=== PATIENT | female | born 1945 | race Caucasian/White ===

== ENCOUNTER 2018-07-07 05:23 | Inpatient (IN) | payer OTHER, MEDICARE ==
[2018-06-25 13:01] LABS: HEMOGLOBIN 13.1 gm/dL (12.0-15.0); MCH 28.4 pg (26.0-34.0); MCHC 33.5 g/dL (28.0-37.0); MCV 84.7 fL (80.0-100.0); RBC 4.6 mil/uL (4.20-5.00); WBC 3.7 thou/uL (4.0-11.0)
[2018-06-25 13:02] LABS: URINE BILIRUBIN NEGATIVE (Negative); URINE BLOOD NEGATIVE (Negative); URINE CLARITY CLEAR; URINE COLOR YELLOW; URINE GLUCOSE-RANDOM* NEGATIVE (Negative); URINE KETONES NEGATIVE (Negative); URINE LEUKOCYTES-REFLEX NEGATIVE (Negative); URINE NITRITE-REFLEX NEGATIVE (Negative); URINE PROTEIN (DIPSTICK) NEGATIVE (Negative); URINE UROBILINOGEN 0.2 E.U./dl (0.2-1.0)
[2018-06-25 13:11] LABS: PROTIME 9.8 Seconds (9.3-11.4)
[2018-06-25 13:19] LABS: CALCIUM 9.6 mg/dL (8.5-10.1); CREATININE 0.9 mg/dL (0.6-1.0); POTASSIUM 4.7 mmol/L (3.5-5.1)
[~2018-07-07] VITALS: Ht 165.1 cm; Wt 57.2 kg
[2018-07-07] VITALS (9 sets, daily range): BP systolic 98–138; BP diastolic 48–71
--- NOTE | ~2018-07-07 | O ---
[facility] [place] [address] OPERATIVE REPORT Name: LAURE FRANCES Room #: 463-P [facility] IN M.R.#: [id number] Admission: 07/07/18 Attend Phys: Kdoak Simpson MD Discharge: 07/08/18 Date of : 43 Report #: [id number] THIS REPORT FOR: //name// CC: Harris Simpson DATE OF SERVICE: 07/07/2018 PREOPERATIVE DIAGNOSIS: Bilateral knee osteoarthritis. POSTOPERATIVE DIAGNOSIS: Bilateral knee osteoarthritis. PROCEDURE: Bilateral total knee arthroplasty with using Navio robotic treasury assistant. SURGEON: Kodak Simpson MD. PERMANENT MOLD SUPERVISOR: Demi Floyd PA-C. INDICATIONS FOR PERMANENT MOLD SUPERVISOR: Throughout the case, extensive retraction and manipulation of the knees were required. This was afforded to me by my treasury assistant. ANESTHESIA: LMA with adductor canal blocks bilaterally. IMPLANTS FOR THE LEFT KNEE: Garcia [employer] Nephew size 6 narrow Oxinium Legion posterior stabilized femur, a size 4 tibia, size 9 polyethylene and a size 35 patella. IMPLANTS FOR THE RIGHT KNEE: Garcia [employer]hew size 6 narrow Legion Oxinium posterior stabilized femur, a size 4 tibia, size 9 polyethylene and a size 32 patella. TOURNIQUET TIME: 68 minutes for the left knee and 81 minutes for the right knee. ESTIMATED BLOOD LOSS: 50 mL. COMPLICATIONS: None. SPECIMENS: None. CONDITION UPON LEAVING THE OPERATING ROOM: Stable. INDICATION FOR PROCEDURE: The patient is a 72-year-old female with bilateral knee osteoarthritis. She had failed conservative treatment for this and after [facility] [address] [address] OPERATIVE REPORT Name: LAURE FRANCES Room #: 463-P DIS IN M.R.#: [id number] Admission: 07/07/18 Attend Phys: Kodak Simpson MD Discharge: 07/08/18 Date of : 43 Report #: [id number] discussion with her, she elected for bilateral total knee arthroplasty. DESCRIPTION OF PROCEDURE: Risks, benefits, alternatives, complications were discussed in detail with the patient including but not limited to risk of anesthesia, risk of damage to nerves, arteries, blood vessels, risk for infection, bleeding, risk for continued knee pain and need for reoperation. Informed consent was obtained from the patient. Bilateral knees were appropriately marked in the preoperative holding area. IV Ancef was given for preoperative antibiotics. Adductor canal blocks were placed by Anesthesia. She was brought to the operating room and placed in the supine position on the operating room table. LMA anesthesia was induced without complication. Following indication applies to bilateral knees except were noted in the report. Tourniquet was placed on the thigh. The bilateral lower extremities were then prepped and draped in normal sterile fashion. Timeout was performed properly identifying the patient and procedure as well as the instrumentation and implants. All in the operating room were in agreement. Extremity was exsanguinated, tourniquet was inflated. Tourniquet time was again 68 minutes on the left and 81 minutes on the right. A standard midline approach to the knee was made with 10 blade through the skin. Dissection was taken down sharply to the fascia and deep flaps were developed medially and laterally. Fresh 10 blade was used to make a medial parapatellar arthrotomy and the knee was inspected. There was severe medial compartment and patellofemoral compartment osteoarthritic change. Anterior horns of the meniscus were removed sharply. ACL and PCL were removed sharply. Reference pins were then placed in the femur and the tibia for use with the NavTencent navigation robotic system. The knee was then digitally mapped using the standard Navio technique and intraoperative plan was made. The femur was a size 6 narrow. The tibia was a size 4. After acceptance of the plan, the distal femoral cut was made with Navio tiny and the size 6, 4-in-1 cutting block was placed on the end of the femur and anterior, posterior, and chamfer cuts were made. The remainder of the menisci removed with Bovie cautery and the tibial resection guide was then pinned in place using the Navio navigation treasury assistant. Tibial resection was made. Flexion and extension gaps were checked and the right knee found to be tight medially, so a limited medial release was performed using the pie crust technique. This balanced the knee well. The left knee did not require a ligament release. Tibia was sized, found to be a size 4. The size 4 tibial trial was placed and punched. A size 6 femoral trial was placed and the box cut was made. This was then trialed with a size 9 polyethylene. Knee was taken through range of motion, found to be stable, found to have good balance in flexion, extension, both manually as well as digitally using the Navio robotic assistance. After this, 9 mm was taken off the posterior surface of the patella and a size 35 patellar trial was placed on the left knee. A size 32 trial was used for the right. Knee was taken through range of motion, found to be stable, found to have good balance in flexion and extension both medially and laterally. Trial components were removed. Bony ends were thoroughly irrigated with normal [address] [address] OPERATIVE REPORT Name: LAURE FRANCES Room #: 463-P DIS IN M.R.#: [id number] Admission: 07/07/18 Attend Phys: Kodak Simpson MD Discharge: 07/08/18 Date of : 43 Report #: [id number]. Final size 4 tibia, size 6 narrow Oxinium Legion posterior stabilized femur and the patellar components were cemented in place using standard cementation techniques. While the cement cured, a periarticular injection consisting of morphine, ropivacaine, epinephrine and Toradol was placed around the knee joint capsule. After the cement cured, the tourniquet was deflated. Hemostasis was obtained with Bovie cautery. Final size 9 polyethylene was placed. A gram of vancomycin was placed deep in the joint. The fascia was closed with 0 Vicryl, skin was closed with 2-0 Vicryl, 3-0 Monocryl. Dermabond and a ALONZO dressing was applied. The patient tolerated this procedure well and went to the recovery room under the care of anesthesia postoperatively. <ELECTRONICALLY SIGNED> By: Kodak Simpson MD 07/09/18 [id number] Kodak Simpson MD /nt
[~2018-07-07 05:23] MED LIST: ALLER-TEC PO; ALLERCLEAR10 MG PO; ALPHA CRS PO; ARMOUR THYROID15 M1 PO; ARMOUR THYROID90 M1 PO; ASPIR 8181 MG PO; B COMPLEX1 EACH PO; CELEXA20 MG PO; CENTRUM SILVER1 EAC4 PO; CO Q-10100 MG PO; COLLAGEN PO; CRESTOR5 MG PO; GLUCOSAMINE CH1 EAC7 PO; L-CARNITINE500 M1 PO; LUNESTA2 MG PO; MSM500 MG PO; PROBIOTIC1 EAC1 PO; RESVERATROL100 MG PO; RUTIN500 MG PO; SELENIUM100 MCG PO; SIMVASTATIN20 MG PO; SPIRONOLACTONE100 M4; TURMERIC500 M2 PO; ULTIMATE OMEGA PO; VITAMIN B-12500 MCG PO; VITAMIN D-32000 UNIT PO; VITAMIN K100 MCG PO; VITAMINC500 PO; [UNRECOGNIZED DRUG - OTHER] PO; [UNRECOGNIZED DRUG - OTHER] PO; [UNRECOGNIZED DRUG - OTHER] PO; [UNRECOGNIZED DRUG - OTHER] PO; [UNRECOGNIZED DRUG - OTHER] PO
[2018-07-08] VITALS: BP 95/46
[2018-07-08 05:00] VITALS: BP 95/50
[2018-07-08 05:48] LABS: HEMATOCRIT 30.9 % (37.0-47.0); HEMOGLOBIN 10.8 gm/dL (12.0-15.0); MCH 29.7 pg (26.0-34.0); MCV 84.8 fL (80.0-100.0); RBC 3.64 mil/uL (4.20-5.00); RDW 12.9 % (10.5-14.5); WBC 7.3 thou/uL (4.0-11.0)
[2018-07-08 08:59] VITALS: BP 98/58
[2018-07-08] MEDS ORDERED: TRI-BUFFERED A325 M1 PO (11:23)
[2018-07-08] MEDS ORDERED: NEURONTIN 300300 M1 PO (11:23)
[2018-07-08 16:24] VITALS: BP 92/47
[2018-07-08 16:28] VITALS: BP 92/47
== END 2018-07-08 17:30 | disposition home or self-care (01) | DRG 462 ==
LOC: TBA 05:23 → 4W 05:23 → PRE 05:36 → 4W 18:39
PROVIDERS: Orthopaedic Surgery
PROC: 0SRC069 Replacement of Right Knee Joint with Oxidized Zirconium on Polyethylene Synthetic Substitute, Cemented, Open Approach (ICD-10-PCS; principal; 2018-07-07)
PROC: 0SRD069 Replacement of Left Knee Joint with Oxidized Zirconium on Polyethylene Synthetic Substitute, Cemented, Open Approach (ICD-10-PCS; principal; 2018-07-07)
PROC: 8E0YXCZ Robotic Assisted Procedure of Lower Extremity (ICD-10-PCS; principal; 2018-07-07)
DX: M17.0 Bilateral primary osteoarthritis of knee (principal); E78.5 Hyperlipidemia, unspecified; F32.9 Major depressive disorder, single episode, unspecified; Z91.048 Other nonmedicinal substance allergy status; Z79.899 Other long term (current) drug therapy
CPT/HCPCS: 10047; 50010; 50101; 50415; 50915; 50954; 51130; 51225; 51320; 51771; 52001; 53000; 53078; 53365; 54118; 56527; 56528; 56805; 57095; 57103; 57109; 57110; 57113; 57127; 57180; 62110; 62900; 70005

== ENCOUNTER → 2019-05-14 | Outpatient (CLI) | payer OTHER, MEDICARE ==
[~2019-05-14] VITALS: Ht 165.1 cm; Wt 59.9 kg
[~2019-05-14] MED LIST changes: +ACYCLOVIR 200200 MG PO; +NEURONTIN 300300 M1 PO; +TRI-BUFFERED A325 M1 PO
== END | disposition home or self-care (01) ==
LOC: GI 08:02
DX: Z12.11 Encounter for screening for malignant neoplasm of colon (principal); Z86.010 Personal history of colon polyps; K63.89 Other specified diseases of intestine; E03.9 Hypothyroidism, unspecified; E78.5 Hyperlipidemia, unspecified; F41.9 Anxiety disorder, unspecified; F32.9 Major depressive disorder, single episode, unspecified; Z85.3 Personal history of malignant neoplasm of breast; Z90.49 Acquired absence of other specified parts of digestive tract; Z79.82 Long term (current) use of aspirin; Z98.41 Cataract extraction status, right eye; Z96.653 Presence of artificial knee joint, bilateral; Z98.42 Cataract extraction status, left eye; Z79.899 Other long term (current) drug therapy; Z98.890 Other specified postprocedural states
CPT/HCPCS: 62110; 62900

== ENCOUNTER → 2021-04-06 | Outpatient (CLI) | payer OTHER, MEDICARE ==
[~2021-04-06] VITALS: Ht 165.1 cm; Wt 61.2 kg
[~2021-04-06] MED LIST changes: +ASA81BEC PO; +MAGNESIUM250 M1 PO; +MEGA BIOTIN10000 MCG PO; +MSM1000 MG PO; +SUPER THERAVIT1 EACH PO; +URSO FORTE500 M1 PO; +[UNRECOGNIZED DRUG - OTHER]
[2021-04-06 09:35] VITALS: BP 133/71
--- NOTE | 2021-04-06 10:03 | NUR ---
Pain Clinic Assessment: 1. History of Osteoarthritis: * KNEES BACK History of Rheumatoid Arthritis: * Not Applicable 2. Height: 5 ft. 5 in. 165.1 cm. Weight: 135.0 lb. oz. 61.236 kg. Patient's BMI: 22.5 3. Vital Signs: BP: 133/71 Pulse: 88 Resp: 14 Temp: 02 Sat: 100 ECG Mon: 4. Pain Intensity: 8-9 5. Fall Risk: Dizziness: N Needs help standing or walking: N Fallen in the last 3 months: N Fall risk comments: 6. Patient on Blood Thinner: None 7. History of Hypertension: N 8. Opioid Therapy greater than 6 weeks: N Opiate Contract Signed: 9. Risk Assessment Tool Provided: 0-LOW RISK 10. Functional Assessment Tool: 56/70 11. Recreational Drug Use: Never Drug Type: Tobacco Use: Never Smoker Tobacco Type: Amount or Packs/day: How Many Years: Alcohol Use: No Frequency: Quant:
== END ==
LOC: PAIN 06:56
PROVIDERS: ATTEND Anesthesiology Pain Medicine
DX: M50.321 Other cervical disc degeneration at C4-C5 level (principal); M48.02 Spinal stenosis, cervical region; M25.78 Osteophyte, vertebrae; Z90.710 Acquired absence of both cervix and uterus; Z96.653 Presence of artificial knee joint, bilateral; Z79.82 Long term (current) use of aspirin; Z79.899 Other long term (current) drug therapy; Z79.891 Long term (current) use of opiate analgesic

== ENCOUNTER → 2021-04-17 | Outpatient (CLI) | payer OTHER, MEDICARE ==
[~2021-04-17] VITALS: Ht 165.1 cm; Wt 63.0 kg
[2021-04-17 14:21] VITALS: BP 123/66
--- NOTE | 2021-04-17 14:47 | NUR ---
Pain Clinic Assessment: 1. History of Osteoarthritis: * KNEES BACK History of Rheumatoid Arthritis: * Not Applicable 2. Height: 5 ft. 5 in. 165.1 cm. Weight: 139.0 lb. oz. 63.050 kg. Patient's BMI: 23.1 3. Vital Signs: BP: 123/66 Pulse: 95 Resp: 14 Temp: 02 Sat: 98 ECG Mon: 4. Pain Intensity: 10 5. Fall Risk: Dizziness: N Needs help standing or walking: N Fallen in the last 3 months: N Fall risk comments: 6. Patient on Blood Thinner: None 7. History of Hypertension: N 8. Opioid Therapy greater than 6 weeks: N Opiate Contract Signed: 9. Risk Assessment Tool Provided: 0-LOW RISK 10. Functional Assessment Tool: 56/70 11. Recreational Drug Use: Never Drug Type: Tobacco Use: Never Smoker Tobacco Type: Amount or Packs/day: How Many Years: Alcohol Use: No Frequency: Quant:
== END | disposition home or self-care (01) ==
LOC: PAIN 09:46
PROVIDERS: ATTEND Anesthesiology Pain Medicine
DX: M54.12 Radiculopathy, cervical region (principal); G89.29 Other chronic pain; M19.90 Unspecified osteoarthritis, unspecified site; Z98.890 Other specified postprocedural states; Z79.899 Other long term (current) drug therapy; Z90.710 Acquired absence of both cervix and uterus; Z96.653 Presence of artificial knee joint, bilateral

== ENCOUNTER → 2021-05-11 | Outpatient (CLI) | payer OTHER, MEDICARE ==
[~2021-05-11] VITALS: Ht 165.1 cm; Wt 62.6 kg
[2021-05-11 10:56] VITALS: BP 132/61
--- NOTE | 2021-05-11 11:09 | NUR ---
Pain Clinic Assessment: 1. History of Osteoarthritis: KNEES BACK History of Rheumatoid Arthritis: Not Applicable 2. Height: 5 ft. 5 in. 165.1 cm. Weight: 138.0 lb. oz. 62.596 kg. Patient's BMI: 23.0 3. Vital Signs: BP: 132/61 Pulse: 94 Resp: 14 Temp: 02 Sat: 100 ECG Mon: 4. Pain Intensity: 9 5. Fall Risk: Dizziness: N Needs help standing or walking: N Fallen in the last 3 months: N Fall risk comments: 6. Patient on Blood Thinner: None 7. History of Hypertension: N 8. Opioid Therapy greater than 6 weeks: N Opiate Contract Signed: 9. Risk Assessment Tool Provided: 0-LOW RISK 10. Functional Assessment Tool: 56/ 11. Recreational Drug Use: Never Drug Type: Tobacco Use: Never Smoker Tobacco Type: Amount or Packs/day: How Many Years: Alcohol Use: No Frequency: Quant:
== END | disposition home or self-care (01) ==
LOC: PAIN 07:11
PROVIDERS: ATTEND Anesthesiology Pain Medicine
DX: M54.12 Radiculopathy, cervical region (principal); M48.061 Spinal stenosis, lumbar region without neurogenic claudication; G89.29 Other chronic pain; M19.90 Unspecified osteoarthritis, unspecified site; Z98.890 Other specified postprocedural states; Z79.899 Other long term (current) drug therapy